=== PATIENT | female | born 1985 | race Caucasian/White ===

== ENCOUNTER 2017-04-15 21:32 | Emergency (ER) | payer OTHER ==
[~2017-04-15] VITALS: Ht 157.5 cm; Wt 62.0 kg
[2017-04-15 21:34] VITALS: BP 111/64; PULSE 74; RESP 16; TEMP 98.8; O2SAT 100
--- NOTE | 2017-04-15 22:49 | PD ---
HPI Chief Complaint: Metal Sprayer Problem/Complaint Time Seen by Provider: 22:37 Travel History International Travel<30 days: No Contact w/Intl Traveler<30days: No Traveled to known affect area: No History of Present Illness HPI Patient is a 31-year-old female 6 weeks by dates. She's had 4 pregnancies 1 live and 2 spontaneous losses. Last spontaneous loss was a year ago. Now she is 6 weeks and today began to have bleeding and spotting in her underwear. Her urine is also blood tinged she has no pain no cramps. She has not seen another MD for this bleeding [facility] Past Medical History Immunizations Current: Yes Tetanus Vaccination: Unknown Influenza Vaccination: No ?: Social History Alcohol Use: No Tobacco Use: No Substance Use: No Allergies-Medications (Allergen,Severity, Reaction): Coded Allergies: No Known Allergies (Unverified , 04/15/17) Review of Systems Except as stated in HPI: all other systems reviewed are Neg Genitourinary: Positive: Vaginal Bleeding ( 6 weeks) Physical Exam Narrative GENERAL: Nontoxic-appearing awake alert SKIN: Warm and dry. HEAD: Atraumatic. Normocephalic. EYES: Pupils equal and round. No scleral icterus. No injection or drainage. ENT: No nasal bleeding or discharge. Mucous membranes pink and moist. NECK: Trachea midline. No JVD. CARDIOVASCULAR: Regular rate and rhythm. RESPIRATORY: No accessory muscle use. Clear to auscultation. Breath sounds equal bilaterally. GASTROINTESTINAL: Abdomen soft, non-tender, nondistended. Hepatic and splenic margins not palpable. MUSCULOSKELETAL: Extremities without clubbing, cyanosis, or edema. No obvious deformities. NEUROLOGICAL: Awake and alert. No obvious cranial nerve deficits. Motor grossly within normal limits. Five out of 5 muscle strength in the arms and legs. Normal speech. PSYCHIATRIC: Appropriate mood and affect; insight and judgment normal. Data Data Last Documented VS Vital Signs Date Time Temp Pulse Resp B/P (MAP) Pulse Ox O2 Delivery O2 Flow Rate FiO2 04/16/17 01:59 04/15/17 21:34 98.8 74 16 100 Room Air Orders Orders Urinalysis - C+S If Indicated (04/15/17 22:39) Ed Urine Pregnancytest Poc (04/15/17 22:39) Complete Blood Count With Diff (04/15/17 22:49) Comprehensive Metabolic Panel (04/15/17 22:49) Beta Hcg (Quant/Titer) (04/15/17 23:30) Us Pelvis (Ques Pr/Ect)W Trans (04/15/17 ) Ed Discharge Order (04/16/17 01:06) Labs Laboratory Tests Test 04/15/17 23:30 White Blood Count 8.9 TH/MM3 Red Blood Count 4.05 MIL/MM3 Hemoglobin 12.3 GM/DL Hematocrit 36.3 % Mean Corpuscular Volume 89.6 FL Mean Corpuscular Hemoglobin 30.4 PG Mean Corpuscular Hemoglobin Concent 34.0 % Red Cell Distribution Width 12.9 % Platelet Count 155 TH/MM3 Mean Platelet Volume 10.3 FL Neutrophils (%) (Auto) 62.4 % Lymphocytes (%) (Auto) 29.9 % Monocytes (%) (Auto) 5.6 % Eosinophils (%) (Auto) 1.7 % Basophils (%) (Auto) 0.4 % Neutrophils # (Auto) 5.5 TH/MM3 Lymphocytes # (Auto) 2.6 TH/MM3 Monocytes # (Auto) 0.5 TH/MM3 Eosinophils # (Auto) 0.2 TH/MM3 Basophils # (Auto) 0.0 TH/MM3 CBC Comment DIFF FINAL Differential Comment Urine Color YELLOW Urine Turbidity HAZY Urine pH 6.5 Urine Specific [place] 1.015 Urine Protein NEG mg/dL Urine Glucose (UA) NEG mg/dL Urine Ketones NEG mg/dL Urine Occult Blood LARGE Urine Nitrite NEG Urine Bilirubin NEG Urine Urobilinogen LESS THAN 2.0 MG/DL Urine Leukocyte Esterase NEG Urine RBC /hpf Urine WBC 1 /hpf Urine Squamous Epithelial Cells 6 /hpf Urine Amorphous Sediment RARE Urine Bacteria FEW /hpf Microscopic Urinalysis Comment CULT NOT INDICATED Blood Urea Nitrogen 12 MG/DL Creatinine 0.57 MG/DL Random Glucose 88 MG/DL Total Protein 7.1 GM/DL Albumin 3.7 GM/DL Calcium Level 8.2 MG/DL Alkaline Phosphatase 38 U/L Aspartate Amino Transf (AST/SGOT) 12 U/L Alanine Aminotransferase (ALT/SGPT) 20 U/L Total Bilirubin 0.5 MG/DL Sodium Level 137 MEQ/L Potassium Level 3.7 MEQ/L Chloride Level 105 MEQ/L Carbon Dioxide Level 25.1 MEQ/L Anion Gap 7 MEQ/L Estimat Glomerular Filtration Rate 122 ML/MIN Human Chorionic Gonadotropin, Quant 38189 MIU/ML [facility] Medical Decision Making Medical Screen Exam Complete: Yes Emergency Medical Condition: Yes Differential Diagnosis Differential diagnosis includes threatened AB subchorionic hemorrhage early UTI hematuria other Narrative Course Ultrasound shows intrauterine heart activity and a possible small subchorionic hemorrhage beta Quant is 21,201 correlates with dates patient is given this information as well as the ultrasound report and to follow -up she has an appointment with a [place] dispatcher tugboat Diagnosis Primary Impression: Threatened in early Additional Impression: Vaginal bleeding affecting early Patient Instructions: General Instructions, Threatened Miscarriage (ED) Additional Instructions: Follow-up in 2 days with a dispatcher tugboat to repeat your blood work to assure that her beta hCG is doubling the next 2 days. Keep your appointment with the [place] dispatcher tugboat OB. Return if any bleeding worsens or if pain gets severe Disposition: 01 DISCHARGE HOME Condition: Good Matthew Salazar MD Apr 15, 2017 22:49
[2017-04-15 23:47] LABS: AUTOMATED NEUTROPHIL # 5.5 TH/MM3 (1.8-7.7); BASOPHIL % 0.4 % (0.0-2.0); EOSINOPHIL # 0.2 TH/MM3 (0-0.4); EOSINOPHIL % 1.7 % (0.0-4.0); HEMATOCRIT 36.3 % (35.0-46.0); HEMOGLOBIN 12.3 GM/DL (11.6-15.3); LYMPH % 29.9 % (9.0-44.0); LYMPHOCYTE # 2.6 TH/MM3 (1.0-4.8); MEAN CELL VOLUME 89.6 FL (80.0-100.0); MEAN CORPUSCULAR HEMOGLOBIN 30.4 PG (27.0-34.0); MEAN PLATELET VOLUME 10.3 FL (7.0-11.0); MONO % 5.6 % (0.0-8.0); MONOCYTE # 0.5 TH/MM3 (0-0.9); NEUT % 62.4 % (16.0-70.0); PLATELET COUNT 155 TH/MM3 (150-450); RED BLOOD COUNT 4.05 MIL/MM3 (4.00-5.30); RED CELL DISTRIBUTION WIDTH 12.9 % (11.6-17.2); WHITE BLOOD COUNT 8.9 TH/MM3 (4.0-11.0)
[2017-04-16] LABS: AMORPHOUS SEDIMENT, URINE RARE; BACTERIA, URINE FEW /hpf; BILIRUBIN, URINE NEG (NEG); BLOOD, URINE LARGE (NEG); GLUCOSE,URINE NEG (NEG); KETONE, URINE NEG (NEG); NITRITE,URINE NEG (NEG); PH, URINE 6.5 (5.0-8.5); SQUAMOUS EPITHELIAL CELL URINE 6 /hpf (0-5); URINE COLOR YELLOW (YELLW/STRAW); URINE LEUKOCYTE ESTERASE NEG (NEG)
[2017-04-16 00:17] LABS: ALBUMIN 3.7 GM/DL (3.4-5.0); AST (GOT) 12 U/L (15-37); BICARBONATE 25.1 MEQ/L (21.0-32.0); BLOOD UREA NITROGEN 12 MG/DL (7-18); CALCIUM 8.2 MG/DL (8.5-10.1); CHLORIDE 105 MEQ/L (98-107); CREATININE 0.57 MG/DL (0.50-1.00); GLOMERULAR FILTRATION RATE 122 ML/MIN (>89); GLUCOSE,RANDOM 88 MG/DL (74-106); SODIUM (NA) 137 MEQ/L (136-145)
[2017-04-16 00:18] LABS: ALT (GPT) 20 U/L (10-53)
[2017-04-16 00:35] LABS: ALKALINE PHOSPHATASE 38 U/L (45-117); TOTAL BILIRUBIN ADULT 0.5 MG/DL (0.2-1.0); TOTAL PROTEIN 7.1 GM/DL (6.4-8.2)
--- NOTE | 2017-04-16 00:45 | RADRPT ---
EXAM DATE/TIME: 04/15/2017 23:17 [place] COMPARISON: No previous studies available for comparison. INDICATIONS : Bleeding with . LAB(S): Beta-hC MEDICAL HISTORY : . Miscarriage x 2. SURGICAL HISTORY : Exploratory laparoscopy. ENCOUNTER: Initial ACUITY: 1 day PAIN SCORE: 0/10 LOCATION: Bilateral pelvis MEASUREMENTS: UTERUS: 11.5 x 10.7 x 6.2 cm ENDOMETRIAL STRIPE: >20 mm RIGHT OVARY: 4.9 x 2.6 x 1.8 cm LEFT OVARY: Non visualized. FREE FLUID: Yes Trace in posterior cul de sac and adjacent to the rt ovary. CROWN RUMP LENGTH: 0.6 cm = 6 WKS 3 DAYS FHR: 118 BPM FINDINGS: UTERUS: There is an intrauterine gestation with the gestational sac measuring 1.6 x 2.4 x 0.9 cm correspondin g to a gestational age of 5 weeks zero days. There is an embryonic pole seen measuring 0.6 cm corresp onding to a gestational age of 6 weeks 3 days. cardiac activity is identified. There is a compl ex fluid collection seen adjacent to the gestation measuring 3.5 x 2.0 x 1.6 cm. This could be a subc horionic hemorrhage. RIGHT OVARY: Ovary contains no mass or significant cystic lesion. LEFT OVARY: The left ovary is not seen. MISCELLANEOUS: Minimal free fluid is seen. CONCLUSION: 1. Single live IUP at 6 weeks 3 days. 2. Adjacent complex fluid collection measuring up to 3.5 cm likely related to a subchorionic hemorrha ge. Kris Schaeffer MD on April 16, 2017 at 0:40 Board Certified Radiologist. This report was verified electronically.
== END 2017-04-16 02:00 | disposition home or self-care (01) ==
LOC: NEPC 21:32
DX: O20.0 Threatened abortion (principal); Z3A.01 Less than 8 weeks gestation of pregnancy
CPT/HCPCS: 76700; 76817; 80053; 81001; 84702; 84703; 85025; 99284